=== PATIENT | female | born 1985 | race African-American/Black ===

== ENCOUNTER 2016-05-29 14:04 | Emergency (ER) | payer OTHER ==
[~2016-05-29] VITALS: Ht 147.3 cm; Wt 81.2 kg
[2016-05-29 15:06] LABS: PLATELET COUNT 255 K/uL (152-353)
[2016-05-29 15:07] LABS: POTASSIUM 3.3 mmol/L (3.6-5.2); SODIUM 135 mmol/L (136-145)
== END 2016-05-29 16:10 | disposition home or self-care (01) ==
LOC: ED 14:04
PROVIDERS: Emergency Medicine
DX: R10.9 Unspecified abdominal pain (principal); R42 Dizziness and giddiness
CPT/HCPCS: 36415; 80053; 81000; 84702; 85027; 99283

== ENCOUNTER 2022-07-02 13:20 | Emergency (ER) | payer OTHER ==
[~2022-07-02] VITALS: Ht 162.6 cm; Wt 99.8 kg
[2022-07-02 13:20] VITALS: BP 177/83; TEMP 98.2
[2022-07-02 14:14] LABS: PLATELET COUNT 324 K/uL (152-353)
[2022-07-02 14:24] LABS: POTASSIUM 3.1 mmol/L (3.6-5.2); SODIUM 133 mmol/L (136-145)
== END 2022-07-02 17:38 | disposition home or self-care (01) ==
LOC: ED 13:20
PROVIDERS: Emergency Medicine
DX: F41.9 Anxiety disorder, unspecified (principal); F32.A Depression, unspecified; E87.6 Hypokalemia; Z34.80 Encounter for supervision of other normal pregnancy, unspecified trimester
CPT/HCPCS: 36415; 80053; 83880; 84484; 85027; 85379; 93005; 99283

== ENCOUNTER 2022-07-27 16:49 | Emergency (ER) | payer OTHER ==
[~2022-07-27] VITALS: Ht 154.9 cm; Wt 90.0 kg
[2022-07-27 16:55] VITALS: TEMP 98.4
[2022-07-27 17:48] LABS: PLATELET COUNT 285 K/uL (152-353)
[2022-07-27 17:57] LABS: POTASSIUM 3.8 mmol/L (3.6-5.2)
[2022-07-27 20:20] VITALS: BP 112/74
== END 2022-07-27 20:20 | disposition home or self-care (01) ==
LOC: ED 16:49
PROVIDERS: Family Medicine
DX: R11.0 Nausea (principal); Z34.91 Encounter for supervision of normal pregnancy, unspecified, first trimester
CPT/HCPCS: 80053; 81002; 81025; 82150; 83690; 85027; 96361; 96374; 96375; 99284; J1885